=== PATIENT | male | born 1980 | race Caucasian/White ===

== ENCOUNTER 2019-06-22 10:36 | Outpatient (CLI) | payer OTHER, SELFPAY ==
[2019-06-22 11:44] LABS: Ferritin 169 ng/mL (26-388); Iron 127 ug/dL (65-175); Percent Iron Saturation 34 % (12-57)
[2019-06-22 11:51] LABS: CRP < 0.2 mg/dL (0.0-0.9)
[2019-06-22 12:02] LABS: Erythrocyte Sedimentation Rate 4 mm/hr (0-15)
[2019-06-24 21:05] LABS: Actin Antibody (IgG) <20 U (<20)
[2019-06-24 21:30] LABS: Mitochondrial (M2) Ab (IgG) <=20.0 U (<=20.0)
[2019-08-18 02:18] LABS: Hepatitis A Antibody IgM Nonreactive; Hepatitis B Core Antibody Nonreactive (Nonreactive); Hepatitis B Surface Antigen Nonreactive (Nonreactive); Hepatitis C Signal to Cutoff 0.02 ratio (<1.00); Hepatitis C Virus Antibody Nonreactive (Nonreactive)
== END 2019-06-22 10:37 | disposition home or self-care (01) ==
LOC: CHSLAB 10:42
PROVIDERS: PCP Internal Medicine; Visit Provider Internal Medicine Gastroenterology
DX: R94.5 Abnormal results of liver function studies (principal); K50.119 Crohn's disease of large intestine with unspecified complications
CPT/HCPCS: 36415; 80074; 82103; 82728; 83516; 83520; 83540; 83550; 85652; 86038; 86140

== ENCOUNTER 2019-06-25 07:53 | Outpatient (CLI) | payer OTHER, SELFPAY ==
--- NOTE | ~2019-06-25 | MR_ITS ---
EXAMINATION: MR MRCP wo/w con/w 3D wo ind DATE: 06/25/2019 12:01 INDICATION: Abnormal of liver function tests TECHNIQUE: Magnetic resonance imaging (MRI) of the abdomen was performed without and with intravenous contrast. Sequences included coronal T2-weighted SS-FSE ARC, coronal T2-weighted FS SS-FSE, coronal T2-weighted 2D FS FIESTA, Water:Coronal LAVA-Flex, sagittal T2-weighted SS-FSE ARC, axial SSFSE ARC, axial 3D DualEcho, axial DWI B=600, axial T1-weighted LAVA, FAT:Coronal LAVA-Flex, and coronal in and opposed phase LAVA-Flex. Thick-slab T2-weighted FRFSE-XL images were obtained for magnetic resonance cholangiopancreatography (MRCP). Maximum intensity projection 3-D reconstructions of the volumetric data were created by the technologist. Postcontrast sequences included a time course of axial T1-weig hted LAVA, FAT:Coronal LAVA-Flex, coronal in and opposed phase LAVA-Flex, and Water:Coronal LAVA-Flex . COMPARISON: None. CONTRAST: Multihance, 20 cc FINDINGS: ABDOMEN MRI: There is loss of hepatic parenchymal signal on opposed phase imaging, consistent with he patic steatosis. The gallbladder is surgically absent. The spleen, pancreas, and adrenal glands are n ormal. The kidneys are unremarkable. There are no pathologically enlarged abdominal lymph nodes. A mo derate volume of colonic stool is present. There is no abnormal enhancement after contrast administra tion. No dilated loops of bowel are present. ABDOMEN MRCP: There is no intrahepatic or extrahepatic biliary dilatation. The pancreatic duct is nor mal in course and caliber. IMPRESSION: 1. Diffuse hepatic steatosis Reviewed, dictated and finalized at location A.
== END 2019-06-25 07:54 | disposition home or self-care (01) ==
LOC: CHSIMG 07:55
PROVIDERS: PCP Internal Medicine; Visit Provider Internal Medicine Gastroenterology
DX: R94.5 Abnormal results of liver function studies (principal); K50.119 Crohn's disease of large intestine with unspecified complications
CPT/HCPCS: 74183; 76376; A9577

== ENCOUNTER 2020-03-24 14:02 | Outpatient (CLI) | payer OTHER, SELFPAY ==
[2020-03-24 15:16] LABS: Prothrombin Time 10.6 Seconds (9.50-12.10)
[2020-03-24 16:06] LABS: Ferritin 117 ng/mL (26-388)
[2020-03-28 13:32] LABS: Endomysial Ab (IgA) Screen Negative (Negative)
[2020-03-28 22:08] LABS: Mitochondrial (M2) Ab (IgG) <=20.0 U (<=20.0)
[2020-03-29 11:54] LABS: Alpha-1-Antitrypsin, QN 132 mg/dL (83-199); Ceruloplasmin 28 mg/dL (18-36); Immunoglobulin A 248 mg/dL (47-310); Immunoglobulin G 893 mg/dL (600-1640); Immunoglobulin M 60 mg/dL (50-300)
[2020-03-29 17:18] LABS: Tissue Transglutaminase IgA Ab 1 U/mL (<4)
[2020-03-29 21:30] LABS: Actin Antibody (IgG) <20 U (<20)
[2020-03-30 05:12] LABS: Hepatitis A Antibody IgM Nonreactive; Hepatitis B Core Antibody Nonreactive (Nonreactive); Hepatitis B Surface Antigen Nonreactive (Nonreactive); Hepatitis C Signal to Cutoff 0.01 ratio (<1.00); Hepatitis C Virus Antibody Nonreactive (Nonreactive)
== END 2020-03-24 14:03 | disposition home or self-care (01) ==
LOC: CHSLAB 14:08
PROVIDERS: PCP Internal Medicine
DX: K52.9 Noninfective gastroenteritis and colitis, unspecified (principal); K62.5 Hemorrhage of anus and rectum; R10.9 Unspecified abdominal pain; R74.8 Abnormal levels of other serum enzymes
CPT/HCPCS: 36415; 80074; 82103; 82390; 82728; 82784; 83516; 83520; 83993; 85610; 86038; 86255; 87045; 87046; 87177; 87209; 87324; 87427

== ENCOUNTER 2020-03-27 08:28 | Outpatient (CLI) | payer OTHER, SELFPAY ==
[2020-03-31 08:57] LABS: Quantiferon TB Plus, 1T NEGATIVE
[2020-03-31 08:58] LABS: NIL 0.02 IU/mL; TB1-NIL 0.01 IU/mL; TB2-NIL 0.01 IU/mL
== END 2020-03-27 08:29 | disposition home or self-care (01) ==
LOC: CHSLAB 08:31
PROVIDERS: PCP Internal Medicine
DX: K52.9 Noninfective gastroenteritis and colitis, unspecified (principal)
CPT/HCPCS: 36415; 81335; 86480

== ENCOUNTER 2020-03-28 07:47 | Outpatient (CLI) | payer OTHER, SELFPAY ==
--- NOTE | ~2020-03-28 | US_ITS ---
EXAMINATION: US right upper quadrant DATE: 03/28/2020 08:11 INDICATION: Hemorrhage of the anus and rectum TECHNIQUE: Multiple grayscale and Doppler ultrasound images of the abdomen were obtained. COMPARISON: MRI, 04/26/2019 FINDINGS: The head and body of the pancreas are normal. The pancreatic tail is obscured by bowel gas. The liver demonstrates increased echogenicity, heterogenous echotexture, and decreased through trans mission. No surface nodularity. Normal hepatopetal flow in the main portal vein. The gallbladder is s urgically absent. The normal common bile duct measures 4 mm. IMPRESSION: 1. Diffuse hepatic steatosis. Reviewed, dictated and finalized at location A. SEATER
== END 2020-03-28 07:48 | disposition home or self-care (01) ==
LOC: CHSIMG 07:48
PROVIDERS: PCP Internal Medicine
DX: K62.5 Hemorrhage of anus and rectum (principal)
CPT/HCPCS: 76705

== ENCOUNTER 2020-06-20 11:02 | Outpatient (CLI) | payer OTHER, SELFPAY ==
[2020-06-20 11:53] LABS: SARS-CoV-2 Ag Negative (Negative)
== END 2020-06-20 11:03 | disposition home or self-care (01) ==
LOC: CHSLAB 11:04
PROVIDERS: PCP Internal Medicine; Visit Provider Internal Medicine
DX: Z20.822 Contact with and (suspected) exposure to COVID-19 (principal)
CPT/HCPCS: 87426; C9803

== ENCOUNTER 2020-11-22 08:23 | Outpatient (CLI) | payer OTHER, SELFPAY ==
[2020-11-22 08:53] LABS: Basophils Absolute Auto 0.04 K/mm3 (0.00-0.10); Basophils Percent Auto 0.7 % (0.0-1.0); Eosinophils Absolute Auto 0.24 K/mm3 (0.02-0.50); Hematocrit 49.1 % (40.0-54.0); Hemoglobin 17.7 g/dL (14.0-18.0); Immature Granulocyte Absolute 0.02 K/mm3 (0.00-0.00); Immature Granulocyte Percent A 0.3 % (0.0-0.0); Lymphocytes Absolute Auto 2.53 K/mm3 (1.10-4.50); Lymphocytes Percent Auto 42.4 % (18.0-42.0); Mean Corpuscular Hemoglobin 30.2 pg (27.0-31.0); Mean Corpuscular Volume 83.6 fL (78.0-102.0); Mean Platelet Volume 10.1 fl (8.7-11.0); Monocytes Absolute Auto 0.37 K/mm3 (0.10-0.90); Monocytes Percent Auto 6.2 % (2.0-11.0); Neutrophils Absolute Auto 2.8 K/mm3 (1.7-7.2); Neutrophils Percent Auto 46.4 % (50.0-70.0); Platelet Count Result 201 K/mm3 (150-420); Red Blood Count 5.87 M/mm3 (4.70-6.10); Red Cell Distribution Width 11.9 % (11.6-14.4)
[2020-11-22 09:27] LABS: Alanine Aminotransferase 72 U/L (16-63); Albumin Level 4.2 g/dL (3.4-5.0); Alkaline Phosphatase 87 U/L (46-116); Anion Gap 13 mmol/L (8-16); Aspartate Amino Transferase 29 U/L (15-37); Bilirubin,Total 1.6 mg/dL (0.00-1.00); Calcium 9.1 mg/dL (8.5-10.1); Carbon Dioxide 25 mmol/L (21-32); Chloride 104 mmol/L (98-108); Estimated Glomerular Filt Rate > 60; Glucose 105 mg/dL (70-99); Potassium 4.3 mmol/L (3.5-5.1); Sodium 142 mmol/L (136-145); Total Protein 7.2 g/dL (6.4-8.2)
[2020-11-22 09:39] LABS: Blood Urea Nitrogen 11 mg/dL (7-18); Osmolality Calculated 293 mOsm/kg (285-295)
== END 2020-11-22 08:24 | disposition home or self-care (01) ==
LOC: CHSLAB 08:26
PROVIDERS: PCP Internal Medicine
DX: K51.90 Ulcerative colitis, unspecified, without complications (principal)
CPT/HCPCS: 36415; 80053; 85025

== ENCOUNTER 2021-08-09 16:09 | Outpatient (CLI) | payer OTHER, SELFPAY ==
[2021-08-09 17:27] LABS: Ferritin 143 ng/mL (26-388)
[2021-08-12 16:57] LABS: Alpha-1-Antitrypsin, QN 109 mg/dL (83-199); Ceruloplasmin 22 mg/dL (18-36)
[2021-08-13 13:04] LABS: Actin Antibody (IgG) <20 U (<20)
[2021-08-13 18:36] LABS: Hepatitis A Antibody IgM Nonreactive; Hepatitis B Core Ab Total Nonreactive (Nonreactive)
[2021-08-13 18:38] LABS: Hepatitis B Surface Antigen Nonreactive (Nonreactive); Hepatitis C Signal to Cutoff 0.01 ratio (<1.00); Hepatitis C Virus Antibody Nonreactive (Nonreactive)
[2021-08-13 21:20] LABS: Mitochondrial (M2) Ab (IgG) <=20.0 U (<=20.0)
[2021-08-15 10:40] LABS: Anti Nuclear Antibody Titer 1:40 (Negative)
== END 2021-08-09 16:10 | disposition home or self-care (01) ==
LOC: CHSLAB 16:15
PROVIDERS: PCP Internal Medicine
DX: K76.0 Fatty (change of) liver, not elsewhere classified (principal); Z86.010 Personal history of colon polyps
CPT/HCPCS: 36415; 82103; 82104; 82390; 82728; 83516; 83520; 86038; 86039; 86704

== ENCOUNTER 2021-09-16 16:00 | Outpatient (CLI) | payer OTHER, SELFPAY ==
[2021-09-16 17:04] LABS: SARS-CoV-2 RNA PCR Positive (Negative)
== END 2021-09-16 16:01 | disposition home or self-care (01) ==
LOC: CHSLAB 16:05
PROVIDERS: PCP Internal Medicine; Visit Provider Internal Medicine
DX: U07.1 COVID-19 (principal); J06.9 Acute upper respiratory infection, unspecified
CPT/HCPCS: C9803; U0003; U0005

== ENCOUNTER 2022-01-22 16:14 | Outpatient (CLI) | payer OTHER, SELFPAY ==
--- NOTE | ~2022-01-22 | CT_ITS ---
EXAMINATION: CT abdomen pelvis w con DATE: 01/22/2022 18:47 INDICATION: Melena/crohns TECHNIQUE: Computed tomography (CT) of the abdomen and pelvis was performed with 100 mL Omnipaque-350 intravenous contrast. Automated exposure control and iterative reconstruction technique were employe d. The dose-length product was 726.20 mGy-cm. COMPARISON: 04/15/2019. FINDINGS: Lower thorax: Unremarkable Liver: Diffuse fatty infiltration Biliary/Gallbladder: Gallbladder is absent. No bile duct dilation. Pancreas: No mass or duct dilation. Spleen: Normal. Adrenals:No mass. Kidneys: No suspicious mass, stone, or hydronephrosis. Right lower pole hypodensity, too small to haley racterize. GI tract: No small or large bowel dilation. Normal appendix. Diverticulosis without diverticulitis. Mesentery/Peritoneum: No ascites, mass, or free air. Retroperitoneum: No mass. Pelvis: Pelvic organs are within normal limits. Soft Tissues: Soft tissues and body wall unremarkable. Bones: No acute osseous finding. IMPRESSION: No acute abdominopelvic process detected. Reviewed, dictated and finalized at location K.
[2022-01-22 16:32] LABS: Basophils Absolute Auto 0.04 K/mm3 (0.00-0.10); Basophils Percent Auto 0.8 % (0.0-1.0); Eosinophils Absolute Auto 0.27 K/mm3 (0.02-0.50); Eosinophils Percent Auto 5.4 % (1.0-6.0); Hematocrit 40.6 % (40.0-54.0); Hemoglobin 14.4 g/dL (14.0-18.0); Immature Granulocyte Absolute 0.02 K/mm3 (0.00-0.00); Immature Granulocyte Percent A 0.4 % (0.0-0.0); Lymphocytes Absolute Auto 1.79 K/mm3 (1.10-4.50); Lymphocytes Percent Auto 35.9 % (18.0-42.0); Mean Corpuscular HGB Conc 35.5 g/dL (32.0-36.0); Mean Corpuscular Hemoglobin 30.1 pg (27.0-31.0); Mean Corpuscular Volume 84.8 fL (78.0-102.0); Mean Platelet Volume 9.3 fl (8.7-11.0); Monocytes Absolute Auto 0.45 K/mm3 (0.10-0.90); Neutrophils Absolute Auto 2.4 K/mm3 (1.7-7.2); Neutrophils Percent Auto 48.5 % (50.0-70.0); Platelet Count Result 155 K/mm3 (150-420); Red Blood Count 4.79 M/mm3 (4.70-6.10); Red Cell Distribution Width 12.4 % (11.6-14.4)
[2022-01-22 16:52] LABS: Alanine Aminotransferase 38 U/L (16-63); Albumin Level 3.7 g/dL (3.4-5.0); Alkaline Phosphatase 80 U/L (46-116); Anion Gap 8 mmol/L (8-16); Aspartate Amino Transferase 19 U/L (15-37); Blood Urea Nitrogen 11 mg/dL (7-18); Calcium 8.3 mg/dL (8.5-10.1); Carbon Dioxide 28 mmol/L (21-32); Chloride 105 mmol/L (98-108); Estimated Glomerular Filt Rate > 60; Glucose 120 mg/dL (70-99); Osmolality Calculated 292 mOsm/kg (285-295); Potassium 3.8 mmol/L (3.5-5.1); Sodium 141 mmol/L (136-145); Total Protein 6.8 g/dL (6.4-8.2)
[2022-01-22 17:02] LABS: CRP < 0.5 mg/dL (0.0-0.9)
[2022-01-22 18:02] LABS: Erythrocyte Sedimentation Rate 10 mm/hr (0-15)
[2022-01-23 10:14] LABS: Amylase 43 U/L (25-115); Lipase 116 U/L (73-393)
== END 2022-01-22 16:15 | disposition home or self-care (01) ==
PROVIDERS: PCP Internal Medicine; Visit Provider Internal Medicine
DX: K50.90 Crohn's disease, unspecified, without complications (principal); R19.7 Diarrhea, unspecified; K92.1 Melena
CPT/HCPCS: 36415; 74177; 80053; 82150; 83690; 85025; 85652; 86140; Q9967

== ENCOUNTER 2022-01-23 10:42 | Outpatient (CLI) | payer OTHER, SELFPAY ==
[2022-01-23 11:26] LABS: Occult Blood Negative (Negative)
[2022-01-31 20:08] LABS: Calprotectin, Stool 708 mcg/g
== END 2022-01-23 10:43 | disposition home or self-care (01) ==
LOC: CHSLAB 10:43
PROVIDERS: PCP Internal Medicine; Visit Provider Internal Medicine
DX: R19.7 Diarrhea, unspecified (principal); K92.1 Melena
CPT/HCPCS: 83993; 87045; 87324; 87427

== ENCOUNTER 2022-02-07 11:30 | Outpatient (CLI) | payer OTHER, SELFPAY | END 2022-02-07 11:31 | disposition home or self-care (01) | LOC: CHSLAB 11:34 | PROVIDERS: PCP Internal Medicine | DX: Z79.899 Other long term (current) drug therapy (principal) | CPT/HCPCS: 36415; 80145 ==

== ENCOUNTER 2022-03-06 14:27 | Outpatient (CLI) | payer OTHER, SELFPAY | END 2022-03-06 14:28 | disposition home or self-care (01) | LOC: CHSLAB 14:32 | PROVIDERS: PCP Internal Medicine | DX: Z79.899 Other long term (current) drug therapy (principal) | CPT/HCPCS: 36415; 83520 ==

== ENCOUNTER 2022-05-20 10:52 | Outpatient (CLI) | payer OTHER, SELFPAY ==
[2022-05-20 11:14] VITALS: BP 154/89; PULSE 72; RESP 14; TEMP 36.3; O2SAT 98; BMI 29.0
--- NOTE | 2022-05-20 11:52 | PC.NURSE ---
Patient here for Entyvio infusion. Education given. All concerns voiced. Entyvio administered. SEE MAR. Tolerated well. No s/sx of interaction noted or reported. Will return 06/03/22 at 0830 for #2 Entyvio infusion. Safe exit of hospital with .
== END 2022-05-20 10:53 | disposition home or self-care (01) ==
LOC: CHSTREATRM 10:56
PROVIDERS: PCP Internal Medicine
DX: K51.90 Ulcerative colitis, unspecified, without complications (principal)
CPT/HCPCS: 96365; J3380; J7050

== ENCOUNTER 2022-06-03 08:29 | Outpatient (CLI) | payer OTHER, SELFPAY ==
[2022-06-03 08:35] VITALS: BMI 29.0
[2022-06-03 08:42] VITALS: BP 145/81; PULSE 76; RESP 14; TEMP 36.6; O2SAT 98
--- NOTE | 2022-06-03 09:36 | PC.NURSE ---
Patient here for week 2 of Entyvio infusion. Reports last week did well, but was very tired the next day. More education given. Has no concerns today voiced. IV Entyvio administered. SEE MAR. Tolerated well. Safe exit of hospital. Will return 07/01/22 at 0830.
== END 2022-06-03 08:30 | disposition home or self-care (01) ==
LOC: CHSTREATRM 08:32
PROVIDERS: PCP Internal Medicine
DX: K51.90 Ulcerative colitis, unspecified, without complications (principal)
CPT/HCPCS: 96365; J3380; J7050

== ENCOUNTER 2022-06-06 16:19 | Outpatient (CLI) | payer OTHER, SELFPAY ==
[2022-06-06 16:35] LABS: Basophils Absolute Auto 0.04 K/mm3 (0.00-0.10); Basophils Percent Auto 0.7 % (0.0-1.0); Eosinophils Absolute Auto 0.29 K/mm3 (0.02-0.50); Eosinophils Percent Auto 4.8 % (1.0-6.0); Hematocrit 44.7 % (40.0-54.0); Hemoglobin 15.8 g/dL (14.0-18.0); Immature Granulocyte Absolute 0.02 K/mm3 (0.00-0.00); Immature Granulocyte Percent A 0.3 % (0.0-0.0); Lymphocytes Absolute Auto 2.37 K/mm3 (1.10-4.50); Lymphocytes Percent Auto 39.3 % (18.0-42.0); Mean Corpuscular HGB Conc 35.3 g/dL (32.0-36.0); Mean Corpuscular Hemoglobin 28.9 pg (27.0-31.0); Mean Corpuscular Volume 81.7 fL (78.0-102.0); Mean Platelet Volume 9.2 fl (8.7-11.0); Monocytes Absolute Auto 0.41 K/mm3 (0.10-0.90); Monocytes Percent Auto 6.8 % (2.0-11.0); Neutrophils Absolute Auto 2.9 K/mm3 (1.7-7.2); Neutrophils Percent Auto 48.1 % (50.0-70.0); Platelet Count Result 174 K/mm3 (150-420); Red Blood Count 5.47 M/mm3 (4.70-6.10); Red Cell Distribution Width 12.2 % (11.6-14.4)
[2022-06-06 17:01] LABS: Alanine Aminotransferase 40 U/L (16-63); Albumin Level 4.1 g/dL (3.4-5.0); Alkaline Phosphatase 98 U/L (46-116); Anion Gap 10 mmol/L (8-16); Aspartate Amino Transferase 28 U/L (15-37); Bilirubin,Total 1.6 mg/dL (0.00-1.00); Blood Urea Nitrogen 18 mg/dL (7-18); Calcium 8.7 mg/dL (8.5-10.1); Carbon Dioxide 27 mmol/L (21-32); Chloride 105 mmol/L (98-108); Estimated Glomerular Filt Rate > 60; Glucose 112 mg/dL (70-99); Osmolality Calculated 296 mOsm/kg (285-295); Sodium 142 mmol/L (136-145); Total Protein 7.1 g/dL (6.4-8.2)
[2022-06-06 17:12] LABS: CRP < 0.5 mg/dL (0.0-0.9)
== END 2022-06-06 16:20 | disposition home or self-care (01) ==
LOC: CHSLAB 16:24
PROVIDERS: PCP Internal Medicine
DX: K51.90 Ulcerative colitis, unspecified, without complications (principal)
CPT/HCPCS: 36415; 80053; 85025; 86140

== ENCOUNTER 2022-07-01 08:20 | Outpatient (CLI) | payer OTHER, SELFPAY ==
[2022-07-01 08:26] VITALS: BMI 29.0
[2022-07-01 08:37] VITALS: BP 135/82; PULSE 82; RESP 14; TEMP 36.6; O2SAT 98
[2022-07-01] MEDS: diphenhydrAMINE HCl CAP 25 MG CAPSULE PO (08:38)
[2022-07-01] MEDS: ACETAMINOPHEN 325 MG TABLET 650 MG PO (08:38)
--- NOTE | 2022-07-01 09:17 | PC.NURSE ---
Patient here for #3 IV entyvio infusion. Only reports this makes him real tired. Education given. No concerns voiced. Premeds and entyvio infusion administered SEE MAR. Tolerated well. Will now come in 8 weeks for a dose for now on. 07/27/22 Tue. 0830. Safe exit of hospital with spouse.
== END 2022-07-01 08:21 | disposition home or self-care (01) ==
LOC: CHSTREATRM 08:24
PROVIDERS: PCP Internal Medicine
DX: K51.90 Ulcerative colitis, unspecified, without complications (principal)
CPT/HCPCS: 96365; A9270; J3380; J7050

== ENCOUNTER 2022-09-15 12:10 | Outpatient (CLI) | payer OTHER, SELFPAY ==
[2022-09-15 12:30] LABS: Basophils Absolute Auto 0.04 K/mm3 (0.00-0.10); Basophils Percent Auto 0.7 % (0.0-1.0); Eosinophils Absolute Auto 0.31 K/mm3 (0.02-0.50); Eosinophils Percent Auto 5.7 % (1.0-6.0); Hemoglobin 15.7 g/dL (14.0-18.0); Immature Granulocyte Absolute 0.03 K/mm3 (0.00-0.00); Immature Granulocyte Percent A 0.5 % (0.0-0.0); Mean Corpuscular HGB Conc 34.9 g/dL (32.0-36.0); Mean Corpuscular Hemoglobin 29.1 pg (27.0-31.0); Mean Corpuscular Volume 83.3 fL (78.0-102.0); Mean Platelet Volume 9.9 fl (8.7-11.0); Monocytes Absolute Auto 0.39 K/mm3 (0.10-0.90); Monocytes Percent Auto 7.1 % (2.0-11.0); Neutrophils Absolute Auto 2.4 K/mm3 (1.7-7.2); Platelet Count Result 175 K/mm3 (150-420); Red Cell Distribution Width 12.3 % (11.6-14.4); White Blood Count 5.5 K/mm3 (4.8-10.8)
[2022-09-15 13:00] LABS: Alanine Aminotransferase 77 U/L (16-63); Alkaline Phosphatase 107 U/L (46-116); Anion Gap 11 mmol/L (8-16); Aspartate Amino Transferase 36 U/L (15-37); Bilirubin,Total 1.3 mg/dL (0.00-1.00); Blood Urea Nitrogen 10 mg/dL (7-18); Calcium 8.8 mg/dL (8.5-10.1); Carbon Dioxide 26 mmol/L (21-32); Chloride 103 mmol/L (98-108); Estimated Glomerular Filt Rate > 60; Glucose 83 mg/dL (70-99); Osmolality Calculated 288 mOsm/kg (285-295); Potassium 4.2 mmol/L (3.5-5.1); Sodium 140 mmol/L (136-145); Total Protein 6.9 g/dL (6.4-8.2)
[2022-09-15 13:01] LABS: CRP < 0.5 mg/dL (0.0-0.9)
[2022-09-18 20:25] LABS: Vitamin D 25 Hydroxy 17 ng/mL (30-100)
== END 2022-09-15 12:11 | disposition home or self-care (01) ==
LOC: CHSLAB 12:14
PROVIDERS: PCP Internal Medicine
DX: K51.90 Ulcerative colitis, unspecified, without complications (principal)
CPT/HCPCS: 36415; 80053; 82306; 85025; 86140

== ENCOUNTER 2022-11-07 08:10 | Outpatient (CLI) | payer OTHER, SELFPAY ==
--- NOTE | ~2022-11-07 | US_ITS ---
Limited Abdominal Sonogram: Real-time sonographic imaging of the right upper quadrant was performed. Clinical History: Abnormal findings of blood chemistry Findings: The liver appears echogenic, with no evidence of mass lesion or bile duct dilatation. Main portal vein demonstrates normal direction of flow. The gallbladder is absent, compatible prior effie cystectomy. The common bile duct measures 5 mm. The visualized pancreas, aorta, and IVC are unremark able. Impression: Diffuse fatty infiltration of the liver. Status post cholecystectomy. Reviewed, dictated and finalized at location M. Impression: Diffuse fatty infiltration of the liver. Status post cholecystectomy.
== END 2022-11-07 08:11 | disposition home or self-care (01) ==
LOC: CHSIMG 08:11
PROVIDERS: PCP Internal Medicine
DX: R79.89 Other specified abnormal findings of blood chemistry (principal); K76.0 Fatty (change of) liver, not elsewhere classified; Z90.49 Acquired absence of other specified parts of digestive tract
CPT/HCPCS: 76705

== ENCOUNTER 2023-02-12 16:33 | Outpatient (CLI) | payer OTHER, SELFPAY ==
[2023-02-12 16:49] LABS: Basophils Absolute Auto 0.05 K/mm3 (0.00-0.10); Basophils Percent Auto 0.9 % (0.0-1.0); Eosinophils Absolute Auto 0.35 K/mm3 (0.02-0.50); Eosinophils Percent Auto 6.2 % (1.0-6.0); Immature Granulocyte Absolute 0.01 K/mm3 (0.00-0.00); Immature Granulocyte Percent A 0.2 % (0.0-0.0); Lymphocytes Absolute Auto 2.33 K/mm3 (1.10-4.50); Mean Corpuscular HGB Conc 35.6 g/dL (32.0-36.0); Mean Corpuscular Hemoglobin 29.7 pg (27.0-31.0); Mean Corpuscular Volume 83.5 fL (78.0-102.0); Mean Platelet Volume 9.4 fl (8.7-11.0); Monocytes Absolute Auto 0.37 K/mm3 (0.10-0.90); Monocytes Percent Auto 6.5 % (2.0-11.0); Neutrophils Absolute Auto 2.6 K/mm3 (1.7-7.2); Neutrophils Percent Auto 45.2 % (50.0-70.0); Platelet Count Result 158 K/mm3 (150-420); Red Blood Count 5.39 M/mm3 (4.70-6.10); Red Cell Distribution Width 12.5 % (11.6-14.4); White Blood Count 5.7 K/mm3 (4.8-10.8)
[2023-02-12 17:11] LABS: Alanine Aminotransferase 51 U/L (16-63); Albumin Level 3.9 g/dL (3.4-5.0); Alkaline Phosphatase 93 U/L (46-116); Anion Gap 11 mmol/L (8-16); Aspartate Amino Transferase 19 U/L (15-37); Bilirubin,Total 1.5 mg/dL (0.00-1.00); Blood Urea Nitrogen 15 mg/dL (7-18); Calcium 9.2 mg/dL (8.5-10.1); Carbon Dioxide 26 mmol/L (21-32); Chloride 102 mmol/L (98-108); Estimated Glomerular Filt Rate > 60; Glucose 91 mg/dL (70-99); Osmolality Calculated 288 mOsm/kg (285-295); Potassium 3.9 mmol/L (3.5-5.1); Sodium 139 mmol/L (136-145); Total Protein 6.7 g/dL (6.4-8.2)
[2023-02-12 17:21] LABS: CRP < 0.5 mg/dL (0.0-0.9)
[2023-02-15 17:52] LABS: Vitamin D 25 Hydroxy 20 ng/mL (30-100)
== END 2023-02-12 16:34 | disposition home or self-care (01) ==
LOC: CHSLAB 16:37
PROVIDERS: PCP Internal Medicine
DX: R79.89 Other specified abnormal findings of blood chemistry (principal); Z87.19 Personal history of other diseases of the digestive system; E55.9 Vitamin D deficiency, unspecified
CPT/HCPCS: 36415; 80053; 82306; 85025; 86140

== ENCOUNTER 2023-08-18 08:09 | Outpatient (CLI) | payer OTHER, SELFPAY ==
[2023-08-18 08:29] LABS: Basophils Absolute Auto 0.04 K/mm3 (0.00-0.10); Basophils Percent Auto 0.8 % (0.0-1.0); Eosinophils Absolute Auto 0.25 K/mm3 (0.02-0.50); Eosinophils Percent Auto 4.8 % (1.0-6.0); Hematocrit 47.3 % (40.0-54.0); Hemoglobin 16.5 g/dL (14.0-18.0); Immature Granulocyte Absolute 0.01 K/mm3 (0.00-0.00); Immature Granulocyte Percent A 0.2 % (0.0-0.0); Lymphocytes Absolute Auto 1.73 K/mm3 (1.10-4.50); Lymphocytes Percent Auto 33.1 % (18.0-42.0); Mean Corpuscular HGB Conc 34.9 g/dL (32-36); Mean Corpuscular Hemoglobin 29.2 pg (27.0-31.0); Mean Corpuscular Volume 83.7 fL (78.0-102.0); Mean Platelet Volume 9.5 fl (8.7-11.0); Monocytes Absolute Auto 0.27 K/mm3 (0.10-0.90); Monocytes Percent Auto 5.2 % (2.0-11.0); Neutrophils Absolute Auto 2.92 K/mm3 (1.70-7.20); Neutrophils Percent Auto 55.9 % (50.0-70.0); Platelet Count Result 144 K/mm3 (150-420); Red Blood Count 5.65 M/mm3 (4.70-6.10); Red Cell Distribution Width 12.2 % (11.6-14.4); White Blood Count 5.2 K/mm3 (4.8-10.8)
[2023-08-18 09:09] LABS: Alanine Aminotransferase 50 U/L (16-63); Albumin Level 4.1 g/dL (3.4-5.0); Alkaline Phosphatase 73 U/L (46-116); Anion Gap 12 mmol/L (4-12); Aspartate Amino Transferase 23 U/L (15-37); Bilirubin,Total 1.9 mg/dL (0.00-1.00); Blood Urea Nitrogen 15 mg/dL (7-18); Carbon Dioxide 25 mmol/L (21-32); Chloride 103 mmol/L (98-108); Estimated Glomerular Filt Rate > 60; Glucose 126 mg/dL (70-99); Osmolality Calculated 292 mOsm/kg (285-295); Potassium 4.1 mmol/L (3.5-5.1); Sodium 140 mmol/L (136-145)
[2023-08-18 09:11] LABS: CRP < 0.5 mg/dL (0.0-0.9)
[2023-08-21 06:23] LABS: Vitamin D 25 Hydroxy 25 ng/mL (30-100)
== END 2023-08-18 08:10 | disposition home or self-care (01) ==
LOC: CHSLAB 08:13
PROVIDERS: PCP Internal Medicine
DX: K51.90 Ulcerative colitis, unspecified, without complications (principal)
CPT/HCPCS: 36415; 80053; 82306; 85025; 86140

== ENCOUNTER 2023-12-09 15:28 | Outpatient (CLI) | payer OTHER, SELFPAY ==
[2023-12-09 15:48] LABS: Basophils Absolute Auto 0.02 K/mm3 (0.00-0.10); Basophils Percent Auto 0.4 % (0.0-1.0); Eosinophils Absolute Auto 0.07 K/mm3 (0.02-0.50); Eosinophils Percent Auto 1.4 % (1.0-6.0); Hematocrit 44.7 % (40.0-54.0); Hemoglobin 16.1 g/dL (14.0-18.0); Immature Granulocyte Absolute 0.02 K/mm3 (0.00-0.00); Immature Granulocyte Percent A 0.4 % (0.0-0.0); Immature Platelet Fraction Pct 1.6 % (1.0-7.0); Lymphocytes Absolute Auto 1.17 K/mm3 (1.10-4.50); Lymphocytes Percent Auto 24.1 % (18.0-42.0); Mean Corpuscular Volume 83.4 fL (78.0-102.0); Mean Platelet Volume 9.3 fl (8.7-11.0); Monocytes Absolute Auto 0.69 K/mm3 (0.10-0.90); Monocytes Percent Auto 14.2 % (2.0-11.0); Neutrophils Absolute Auto 2.88 K/mm3 (1.70-7.20); Neutrophils Percent Auto 59.5 % (50.0-70.0); Platelet Count Result 130 K/mm3 (150-420); Red Blood Count 5.36 M/mm3 (4.70-6.10); Red Cell Distribution Width 12.3 % (11.6-14.4); White Blood Count 4.9 K/mm3 (4.8-10.8)
[2023-12-09 16:21] LABS: SARS-CoV-2 RNA PCR Positive (Negative)
[2023-12-09 16:23] LABS: Influenza A QL RT-PCR Negative (Negative); Influenza B QL RT-PCR Negative (Negative); RSV RNA, RT-PCR Negative (Negative); Strep Group A RT-PCR NOT DETECTED (Negative)
[2023-12-09 19:01] LABS: Alanine Aminotransferase 39 U/L (6-50); Albumin Level 4.7 g/dL (3.5-5.1); Alkaline Phosphatase 66 U/L (38-126); Anion Gap 13 mmol/L (4-12); Aspartate Amino Transferase 43 U/L (17-59); Bilirubin,Total 2.3 mg/dL (0.2-1.3); Blood Urea Nitrogen 12 mg/dL (9-20); Calcium 9.5 mg/dL (8.4-10.2); Carbon Dioxide 25 mmol/L (22-30); Chloride 100 mmol/L (98-107); Estimated Glomerular Filt Rate > 60; Glucose 93 mg/dL (65-110); Osmolality Calculated 285 mOsm/kg (285-295); Sodium 138 mmol/L (137-145)
== END 2023-12-09 15:29 | disposition home or self-care (01) ==
LOC: CHSLAB 15:30
PROVIDERS: PCP Internal Medicine; Visit Provider Internal Medicine
DX: U07.1 COVID-19 (principal); J06.9 Acute upper respiratory infection, unspecified
CPT/HCPCS: 36415; 80053; 85025; 85055; 87637; 87651

== ENCOUNTER 2024-02-18 08:50 | Outpatient (CLI) | payer OTHER, SELFPAY ==
[2024-02-18 09:46] LABS: Basophils Absolute Auto 0.04 K/mm3 (0.00-0.10); Basophils Percent Auto 0.7 % (0.0-1.0); Eosinophils Absolute Auto 0.34 K/mm3 (0.02-0.50); Eosinophils Percent Auto 5.5 % (1.0-6.0); Hematocrit 47.6 % (40.0-54.0); Hemoglobin 17.3 g/dL (14.0-18.0); Immature Granulocyte Absolute 0.02 K/mm3 (0.00-0.00); Immature Granulocyte Percent A 0.3 % (0.0-0.0); Lymphocytes Absolute Auto 1.81 K/mm3 (1.10-4.50); Lymphocytes Percent Auto 29.5 % (18.0-42.0); Mean Corpuscular HGB Conc 36.3 g/dL (32-36); Mean Corpuscular Hemoglobin 29.9 pg (27.0-31.0); Mean Corpuscular Volume 82.4 fL (78.0-102.0); Monocytes Percent Auto 8.2 % (2.0-11.0); Neutrophils Absolute Auto 3.42 K/mm3 (1.70-7.20); Neutrophils Percent Auto 55.8 % (50.0-70.0); Platelet Count Result 163 K/mm3 (150-420); Red Blood Count 5.78 M/mm3 (4.70-6.10); Red Cell Distribution Width 12.1 % (11.6-14.4); White Blood Count 6.1 K/mm3 (4.8-10.8)
[2024-02-18 10:05] LABS: Alanine Aminotransferase 54 U/L (16-63); Albumin Level 4.4 g/dL (3.4-5.0); Alkaline Phosphatase 80 U/L (46-116); Anion Gap 12 mmol/L (4-12); Aspartate Amino Transferase 19 U/L (15-37); Bilirubin,Total 2.2 mg/dL (0.00-1.00); Blood Urea Nitrogen 16 mg/dL (7-18); Calcium 10.5 mg/dL (8.5-10.1); Carbon Dioxide 27 mmol/L (21-32); Chloride 104 mmol/L (98-108); Estimated Glomerular Filt Rate > 60; Glucose 100 mg/dL (70-99); Osmolality Calculated 297 mOsm/kg (285-295); Potassium 4.1 mmol/L (3.5-5.1); Sodium 143 mmol/L (136-145); Total Protein 7.3 g/dL (6.4-8.2)
[2024-02-18 10:09] LABS: CRP < 0.5 mg/dL (0.0-0.9)
[2024-02-19 09:13] LABS: Vitamin D 25 Hydroxy 22 ng/mL (30-100)
== END 2024-02-18 08:51 | disposition home or self-care (01) ==
LOC: CHSLAB 08:56
PROVIDERS: PCP Internal Medicine
DX: R79.89 Other specified abnormal findings of blood chemistry (principal)
CPT/HCPCS: 36415; 80053; 82306; 85025; 86140

== ENCOUNTER 2024-08-16 09:53 | Outpatient (CLI) | payer OTHER, SELFPAY ==
--- OUTSIDE RECORDS SUMMARY | 2024-08-16 10:07 | XMS_ITS | Referral Summary ---
Author Organization [facility] Address [address] [place] [id number] Care Team Providers Care Sock Boarder Name Role Phone Layton Burgos MD Primary Care Provider + [phone] Allergies No known active allergies Medications dicyclomine (BENTYL) 10 mg capsule 01/19/2020 Active Pentasa 500 mg CR capsule 01/19/2020 Active Active Problems Problem Noted Date Diagnosed Date Chronic maxillary sinusitis 06/24/2017 Assessment & Plan (06/24/2017 8:32 AM CDT): Patient was reassured that he has a benign-appearing mucus retention cyst in the left maxillary sinus. I do not have the actual disc to view however based on the interpreting radiologist this is a common finding that typically does not require treatment. Patient's upper respiratory tract symptoms have since resolved. He has no prior history of chronic sinonasal problems. Incidentally noted was a left septal spur that is asymptomatic. Patient is welcome to bring the actual disc of his CT scan for my review. Patient can otherwise follow up as needed. 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 Gender Identity Not on file Sexual Orientation Not on file Last Filed Vital Signs Vital Sign Reading Time Taken Comments Blood Pressure 128/86 02/24/2020 3:28 PM SURGICAL BRACE MAKER Pulse 82 02/24/2020 3:28 PM [employer]GICAL [employer]ACE [employer]KER Temperature 37.2 C (98.9 F) 02/24/2020 11:36 AM SURGICAL BRACE MAKER Respiratory Rate 14 02/24/2020 3:28 PM SURGICAL BRACE [employer]KER Oxygen Saturation 99% 02/24/2020 3:28 PM SURGICAL BRACE [employer]KER Inhaled Oxygen Concentration - - Weight 99.8 kg (220 lb) 02/24/2020 11:38 AM SURGICAL BRACE MAKER Height 182.9 cm (6') 02/24/2020 11:38 AM SURGICAL BRACE MAKER Body Mass Index 29.84 02/24/2020 11:38 AM SURGICAL BRACE MAKER Plan of Treatment Not on file Insurance [facility] HMO Care Teams Sock Boarder Relationship Specialty Start Date End Date Layton Burgos MD [address] [place] [address] PCP - General Internal Medicine 06/04/17
--- OUTSIDE RECORDS SUMMARY | 2024-08-16 10:07 | XMS_ITS | Clinical Summary ---
Author Organization [facility] Address [address] [place] [id number] Care Team Providers Care Endodontist Name Role Phone Layton Burgos MD Primary Care Provider + [phone] Allergies No known active allergies Medications dicyclomine [...] Patient can otherwise follow up as needed. 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 Gender Identity Not on file Sexual Orientation Not on file Obstetrics History Last Filed Vital Signs Vital Sign Reading Time Taken Comments Blood Pressure 128/86 02/24/2020 3:28 PM EMPLOYEE [employer]ENEFITS MANAGER Pulse 82 02/24/2020 3:28 PM EMPLOYEE BENEFITS MANAGER Temperature 37.2 C (98.9 F) 02/24/2020 11:36 AM EMPLOYEE BENEFITS MANAGER Respiratory Rate 14 02/24/2020 3:28 PM EMPLOYEE BENEFITS MANAGER Oxygen Saturation 99% 02/24/2020 3:28 PM EMPLOYEE BENEFITS MANAGER Inhaled Oxygen Concentration - - Weight 99.8 kg (220 lb) 02/24/2020 11:38 AM EMPLOYEE BENEFITS MANAGER Height 182.9 cm (6') 02/24/2020 11:38 AM EMPLOYEE BENEFITS MANAGER Body Mass Index 29.84 02/24/2020 11:38 AM EMPLOYEE BENEFITS MANAGER Plan of Treatment Not on file Insurance [facility]/O Address: [facility] [id number] [place] [id number] Care Teams Endodontist Relationship Specialty Start Date End Date Layton Burgos MD [address] [place] [address] PCP - General Internal Medicine 06/04/17
[2024-08-16 10:24] LABS: Basophils Absolute Auto 0.05 K/mm3 (0.00-0.10); Basophils Percent Auto 0.8 % (0.0-1.0); Eosinophils Absolute Auto 0.24 K/mm3 (0.02-0.50); Hematocrit 47.4 % (40.0-54.0); Hemoglobin 16.7 g/dL (14.0-18.0); Immature Granulocyte Absolute 0.03 K/mm3 (0.00-0.00); Immature Granulocyte Percent A 0.5 % (0.0-0.0); Lymphocytes Absolute Auto 1.62 K/mm3 (1.10-4.50); Lymphocytes Percent Auto 27.1 % (18.0-42.0); Mean Corpuscular HGB Conc 35.2 g/dL (32-36); Mean Corpuscular Hemoglobin 29.5 pg (27.0-31.0); Mean Corpuscular Volume 83.7 fL (78.0-102.0); Mean Platelet Volume 9.5 fl (8.7-11.0); Monocytes Absolute Auto 0.42 K/mm3 (0.10-0.90); Neutrophils Absolute Auto 3.62 K/mm3 (1.70-7.20); Neutrophils Percent Auto 60.6 % (50.0-70.0); Platelet Count Result 169 K/mm3 (150-420); Red Blood Count 5.66 M/mm3 (4.70-6.10); Red Cell Distribution Width 12.2 % (11.6-14.4)
[2024-08-16 11:08] LABS: Alanine Aminotransferase 46 U/L (6-50); Albumin Level 4.6 g/dL (3.5-5.1); Alkaline Phosphatase 58 U/L (38-126); Anion Gap 8 mmol/L (4-12); Aspartate Amino Transferase 30 U/L (17-59); Bilirubin,Total 2.3 mg/dL (0.2-1.3); Blood Urea Nitrogen 12 mg/dL (9-20); Calcium 9.1 mg/dL (8.4-10.2); Carbon Dioxide 23 mmol/L (22-30); Chloride 108 mmol/L (98-107); Estimated Glomerular Filt Rate > 60; Glucose 100 mg/dL (65-110); Osmolality Calculated 287 mOsm/kg (285-295); Potassium 4.3 mmol/L (3.4-5.0); Sodium 139 mmol/L (137-145); Total Protein 6.9 g/dL (6.3-8.2)
[2024-08-17 18:29] LABS: Vitamin D 25 Hydroxy 24 ng/mL (30-100)
== END 2024-08-16 09:54 | disposition home or self-care (01) ==
LOC: CHSLAB 09:57
PROVIDERS: PCP Internal Medicine
DX: R79.89 Other specified abnormal findings of blood chemistry (principal); K51.30 Ulcerative (chronic) rectosigmoiditis without complications
CPT/HCPCS: 36415; 80053; 82306; 85025